=== PATIENT | female | born 1955 | race Caucasian/White ===

== ENCOUNTER → 2023-10-30 12:42 | Outpatient (REF) | payer OTHER, SELFPAY ==
--- NOTE | 2023-10-30 12:53 | CA_ITS ---
Transthoracic Echocardiogram Patient (Last, First, Middle): Sonya Cote, Gender: Female Date of : 1955 Age: 68 Procedure Date: 10/30/2023 Procedure Type: Transthoracic Echocardiogram Location: OP Height: 170.18 cm Weight: 80.29 kg BSA: 1.92 m2 Heart Rate: bpm BP: 124 / 80 mmHg Channel Worker: TO Referring MD: Erma Astorga NP Ophthalmology Surgical Technician: Lucien Rodríguez MD Symptoms: L ANT FASCICULAR BLK I44.4 Study Quality: Adequate ECG Rhythm: Sinus Conclusions: - 1. Normal LV ejection fraction of 60 65% with grade 1 diastolic dysfunction 2. Normal cardiac valvular Doppler 3. Normal RV systolic pressure 4. No gross pericardial effusion Findings Left Ventricle Normal left ventricular size, thickness, and systolic function. The visually estimated ejection fraction is between 60-65%. Spectral Doppler is indicative of an impaired relaxation filling pattern. E/E prime ratio is <8, consistent with normal filling pressures. Peak GLS is -21.2%, within normal limits. Right Ventricle Normal right ventricular cavity size and systolic function. Atria Both atria are normal in size. There is no evidence of interatrial shunt. Aortic Valve Normal aortic valve structure and function. There is no aortic valve stenosis. There is no aortic valve regurgitation. Mitral Valve Normal mitral valve structure and function. There is trace mitral valve regurgitation. There is no mitral valve stenosis. Pulmonic Valve The pulmonic valve is likely normal. There is trace pulmonic valve regurgitation. Tricuspid Valve Normal tricuspid valve structure. There is trace tricuspid valve regurgitation. The right ventricular systolic pressure is normal. The right ventricular systolic pressure is 20 mmHg. Normal right atrial pressure. There is no evidence of pulmonary hypertension. Great Vessels The pulmonary artery was not well visualized. There is no dilatation of the ascending aorta. Venous The inferior vena cava is normal in size and collapses greater than 50% with inspiration. Pericardium/Pleural There is no evidence of pericardial effusion. Prior Study Comparison No prior study available for comparison. Measurements 2D Linear Measurements IVSd: 1.17 0.6-0.9/0.6-1.0 cm LVIDd: 4.56 3.9-5.3/4.2-5.9 cm LVIDd Index: 2.38 2.4-3.2/2.2-3.1 cm/m2 LVIDs: 2.39 2.0-3.6 cm LVPWd: 1.05 0.7-1.1 cm LA Diam: 3.90 2.7-3.8/3.0-4.0 cm LAIDs Index: 2.03 1.5-2.3 cm/m2 LV Mass: 225.52 67-162/88-224 g LV Mass Index: 117.46 43-95/49-115 g/m2 LVOT Diam: 2.30 3.0+(-)1.3 cm 2D Systolic Function EF 4C: 62.20 >55% EF 2C: 64.70 >55% EF BiP: 63.80 >55% Mitral Valve MV Pk E: 0.48 MV PK A: 0.52 MV Decel Time: 326.00 E/A: 0.90 E'Lateral: 5.55 E'Medial: 4.46 E/E' Med: 10.70 E/E' Lat: 8.60 PHT: 95.00 MVA PHT: 2.32 Decel Swain: 1.46 Aortic Valve AoV Pk Jose: 1.22 AoV Mn Jose: 0.88 AoV VTI: 0.26 AoV Pk Grad: 6.00 Aov Mn Grad: 3.00 MATEO Cont.VTI: 2.55 LVOT LVOT Pk Jose: 0.82 LVOT Mn Jose: 0.50 LVOT VTI: 0.16 LVOT Pk Grad: 3.00 LVOT Mn Grad: 1.00 LVOT Diam: 2.30 LVOT Area: 4.15 Diastolic Function MV Pk E: 0.48 MV Pk A: 0.52 E/A: 0.90 E'Medial: 4.46 E/E' Med: 10.70 E' Laterial: 5.55 E/E' Lat: 8.60 Right Ventricle TAPSE (mm): 23.40 TVS' Jose: 15.20 Tricuspid Valve TR Pk Jose: 2.05 TR Pk Grad: 17.00 RA Press: 3.00 RVSP: 20.00 Great Vessels Aorta Sinus of Valsalva: 3.11 2.0-3.5 cm Ao Asc: 3.10 2.1-3.4 cm Updated in Other Vendor System with Status of Final Lucien Rodríguez MD electronically signed on 10/30/2023 6:40:06 PM with status of Final
== END ==
LOC: HO.CARD 12:42
PROVIDERS: Visit Provider Nurse Practitioner
DX: I44.4 Left anterior fascicular block (principal)
CPT/HCPCS: 93306; 93356

== ENCOUNTER → 2023-10-30 12:53 | Outpatient (BNV) | payer OTHER, SELFPAY | PROVIDERS: Visit Provider Internal Medicine Cardiovascular Disease | DX: I44.4 Left anterior fascicular block (principal) | CPT/HCPCS: 93306 ==

== ENCOUNTER 2023-12-02 11:27 | Outpatient (REF) | payer OTHER, SELFPAY | END 2023-12-02 11:28 | disposition home or self-care (01) | LOC: HO.UMASIMG 11:27 | PROVIDERS: Visit Provider Family Medicine | DX: R39.9 Unspecified symptoms and signs involving the genitourinary system (principal); R33.9 Retention of urine, unspecified | CPT/HCPCS: 76770; 76830; 76856 ==

== ENCOUNTER → 2025-01-19 08:25 | Outpatient (REF) | payer OTHER, SELFPAY | LOC: HO.CARD 08:25 | PROVIDERS: PCP Nurse Practitioner; Visit Provider Nurse Practitioner | DX: R00.2 Palpitations (principal) | CPT/HCPCS: 93246 ==

== ENCOUNTER → 2025-01-19 14:00 | Outpatient (BNV) | payer OTHER, SELFPAY | PROVIDERS: PCP Nurse Practitioner; Visit Provider Internal Medicine Cardiovascular Disease | DX: I49.1 Atrial premature depolarization (principal) | CPT/HCPCS: 93248 ==